=== PATIENT | female | born 1955 | race Caucasian/White ===

== ENCOUNTER 2017-02-19 18:43 | Emergency (ER) | payer OTHER ==
[~2017-02-19] VITALS: Ht 160 cm; Wt 88.5 kg
[2017-02-19] MEDS ORDERED: LEXAPRO10 MG PO (18:57)
[2017-02-19] MEDS ORDERED: UNITHROID50 MCG PO (18:57)
[2017-02-19] MEDS ORDERED: NORCO 5-325 TA1 EACH PO (19:23)
== END 2017-02-19 20:45 | disposition home or self-care (01) ==
LOC: ED 18:43
PROC: 0RSPXZZ Reposition Left Wrist Joint, External Approach (ICD-10-PCS; principal; 2017-02-19)
DX: S52.502A Unspecified fracture of the lower end of left radius, initial encounter for closed fracture (principal); S52.252A Displaced comminuted fracture of shaft of ulna, left arm, initial encounter for closed fracture; S93.402A Sprain of unspecified ligament of left ankle, initial encounter; Z88.1 Allergy status to other antibiotic agents; Z98.51 Tubal ligation status; Z79.899 Other long term (current) drug therapy; W19.XXXA Unspecified fall, initial encounter
CPT/HCPCS: 25600; 73110; 73610; 99283

== ENCOUNTER 2017-02-23 12:00 | Day surgery (SDC) | payer OTHER ==
[~2017-02-23] VITALS: Ht 160 cm; Wt 88.5 kg
[~2017-02-23 12:00] MED LIST: LEXAPRO10 MG PO; NORCO 5-325 TA1 EACH PO; UNITHROID50 MCG PO
--- NOTE | 2017-02-23 14:48 | NUR ---
PT UP TO THE BATHROOM WITH STBY ASST. TOLERATED WELL, VOID NOTED. PT REPORTS "FINGERS AND WRIST AREA" ARE BECOMING NUMB AND TINGLY. PT BACK TO BED. TOLERATED WELL.
--- NOTE | 2017-02-23 16:34 | NUR ---
02/23/17 1639 Sarah Cleaning [id number]-PATIENT ARRIVED TO PACU ON 8L MASK 02 SAT 99% NONAROUSABLE. SPLINT TO LEFT ARM CDI. GOOD CAP REFILL AND WARMTH EL PULSE. ELEVATED AND ICE APPLIED.
--- NOTE | 2017-02-23 17:21 | NUR ---
PT ARRIVED TO ROOM 112 ON MED SURG UNIT AT 1715 WITH ZEYAD YUNG. ALEJANDRA YUNG TOOK REPORT. VS DONE BY MCKINLEY YUNG. VSS. FEELS URGE TO URINATE NOW. WILL ORDER FOOD TRAY.
--- NOTE | 2017-02-23 17:33 | NUR ---
PT URINATED IN BATHROOM. SBA/1PA TO AMBULATE WITHOUT DIZZINESS OR NAUSEA. TRYING JELLO, JUICE, AND CRACKERS NOW. ICE BACK ON WRIST IN SLING.
--- NOTE | 2017-02-23 18:27 | NUR ---
PT TOLERATING SOLID FOODS. PAIN WELL CONTROLLED. DISCHARGE PAPERWORK PROVIDED.
--- NOTE | 2017-03-01 08:13 | OR ---
[facility] [address] [place], [place] [address] Signed DATE OF SERVICE: 02/23/2017 PREOPERATIVE DIAGNOSIS: Comminuted distal radial fracture, left. POSTOPERATIVE DIAGNOSIS: Comminuted distal radial fracture, left. PROCEDURE: Open reduction internal fixation, comminuted distal radial fracture. ANESTHESIA: General. SPECIMEN: There were no specimens. COMPLICATIONS: No complications. TOURNIQUET TIME: About 40 minutes. WHAT WAS DONE: The patient was taken to the operating room, placed on the operating table in the supine position. After anesthesia was induced and the airway secured, left upper extremity was positioned, prepped, and draped in a routine sterile fashion. The arm was exsanguinated with an Esmarch bandage. Pneumatic tourniquet was inflated to 250 mmHg. A volar incision was made beginning at the distal wrist flexion crease extending proximally for about 8 cm. Skin was divided sharply right over the FCR tendon. The skin was divided sharply. Subcutaneous tissue was bluntly spread. The FCR tendon sheath was split on its volar surface. We then retracted it in an ulnar direction, and this split the deep layer of the FCR tendon sheath. All volar contents were then swept in an ulnar direction, and 2 small self-retaining retractors were placed. A small portion of the pronator was then elevated off the radius, and the primary fracture site was reduced under direct vision. There was pretty marked comminution. This was addressed and most of the pieces were teased back into place. We were then able to fashion an 8 x 4 distal radial volar plate and placed it over the fracture. After aligning it under fluoroscopic control, we secured it with a single screw. We then fine-tuned the position of the plate and then secured it with 2 additional proximal screws and 4 distal smooth pins. The wound was gently irrigated. AP and lateral fluoroscopy confirmed good reduction and stable construct. The wound was gently irrigated and closed in a standard fashion. A sterile dressing, followed by a bulky dressing, and a volar splint were applied. The patient was awakened and taken to recovery room where she arrived in stable condition. Counts were correct and antibiotic protocols were followed. Electronically Signed By: MATTIE IBARRA MD 03/01/17 0813 PATIENT NAME: RAJESH GALLEGOS OPERATIVE REPORT DATE OF : 51 PHYSICIAN: MATTIE IBARRA MD REPORT #: [id number] REPORT IS CONFIDENTIAL AND NOT TO BE RELEASED WITHOUT AUTHORIZATION [facility] [address] [place] [id number] Signed Mattie Ibarra MD WFB/Modl /[id number] Electronically Signed By: MATTIE IBARRA MD 03/01/17 0813 PATIENT NAME: RAJESH GALLEGOS RUTH OPERATIVE REPORT DATE OF : 51 PHYSICIAN: MATTIE IBARRA MD REPORT #: [id number] REPORT IS CONFIDENTIAL AND NOT TO BE RELEASED WITHOUT AUTHORIZATION
== END 2017-02-23 18:45 | disposition home or self-care (01) ==
LOC: OPS 12:00 → DS 12:00 → OPS 16:00 → DS 16:00 → OPS 16:45 → MS 17:15 → OPS 18:45
PROVIDERS: Orthopaedic Surgery
PROC: 0PSJ04Z Reposition Left Radius with Internal Fixation Device, Open Approach (ICD-10-PCS; 2017-02-23)
PROC: 0PSJ04Z Reposition Left Radius with Internal Fixation Device, Open Approach (ICD-10-PCS; principal; 2017-02-23 16:45)
DX: S52.572A Other intraarticular fracture of lower end of left radius, initial encounter for closed fracture (principal); E03.9 Hypothyroidism, unspecified; F32.9 Major depressive disorder, single episode, unspecified; W10.8XXA Fall (on) (from) other stairs and steps, initial encounter
CPT/HCPCS: 01830; 36415; 64417; 73100; 76942; 80053; 85025; C1713; J1100; J1885; J2405; J2704; J2795; J3010; J7120